=== PATIENT | male | born 1950 | race Caucasian/White ===

== ENCOUNTER 2017-02-08 01:55 | Emergency (ER) | payer OTHER ==
[2017-02-08 02:08] VITALS: BP 154/94
== END 2017-02-08 02:53 | disposition home or self-care (01) ==
LOC: ED 01:55
DX: L02.01 Cutaneous abscess of face (principal); L03.211 Cellulitis of face; E11.9 Type 2 diabetes mellitus without complications; E78.5 Hyperlipidemia, unspecified; Z79.84 Long term (current) use of oral hypoglycemic drugs; Z79.899 Other long term (current) drug therapy